=== PATIENT | female | born 1965 | race Caucasian/White ===

== ENCOUNTER → 2017-05-01 | Outpatient (CLI) | payer OTHER, BC ==
--- NOTE | ~2017-05-01 | HM ---
Unit #: [id number] #: [id number] Patient: JEN ROMERO LARISSA [id number] [address] [address] [id number] O MR#: [id number] NAME: JEN ROMERO LARISSA : 1965 SEX: F STUDY DATE/TIME: 05/01/2017 UNIT: CE ROOM: STUDY DESCRIPTION: [facility] Attending Physician: Chikis Dee M.D. Referring Physician: Chikis Dee M.D. Primary Care Physician: Chikis Dee M.D. CARDIOLOGY REPORT EXAM Holter monitor. DATE APPLIED 05/01/2017 DATE SCANNED 05/03/[address] Chikis Dee READ BY Charli Mas M.D. INDICATION Palpitations. SUMMARY The patient was monitored for 24 hours. A total of 104,737 QRS complexes were analyzed. Less than 1% were ventricular ectopic beats, less than 1% were supraventricular ectopic beats. Average heart rate was 73 beats per minute, and the rhythm was sinus. Minimum heart rate of 47 beats per minute occurred at 5:49 a.m. Maximum heart rate of 123 beats per minute occurred at approximately 2:30 p.m. There were no pauses. The longest R-R interval occurred after a PAC. SUPRAVENTRICULAR ECTOPY: Six isolated beats with no runs. VENTRICULAR ECTOPY: Fourteen isolated beats with no runs. SYMPTOMS: None. PATIENT ACTIVATED EVENTS: None. IMPRESSION 1. Holter monitor shows no significant dysrhythmias. 2. Patient did not note any palpitations during this study. 3. Rare supraventricular and ventricular ectopy is noted. Unit #: [id number] #: [id number] Patient: JEN ROMERO LARISSA Dictated by... Tg Joaquin/antonio TD: 05/05/2017 08:25 JOB #: [id number] CARDIOLOGY REPORT Page 1 of 1 X Charli Mas MD [facility] MONITOR REPORT
== END | disposition home or self-care (01) ==
LOC: CEKG 10:40
DX: R00.2 Palpitations (principal); R00.0 Tachycardia, unspecified
CPT/HCPCS: 93225; 93226